=== PATIENT | female | born 1950 | race Caucasian/White ===

== ENCOUNTER 2017-03-10 22:11 | Emergency (ER) | payer OTHER, MEDICARE ==
[~2017-03-10] VITALS: Ht 162.6 cm; Wt 94.8 kg
[2017-03-10 23:59] LABS: HEMATOCRIT 43.3 % (36.0-46.0); MCH 27.9 PG (29.0-34.0); MCHC 31.9 G/DL (30.0-36.0); MCV 87.5 FL (83-99); MEAN PLAT.VOLUME 10.3 uM^3 (9.5-12.4); PLATELET COUNT 294 K/uL (156-360); RBC DIS.WIDTH-CV 13.7 % (11.8-14.6); RBC DIS.WIDTH-SD 43.6 % (39-53); RED BLOOD COUNT 4.95 M/uL (3.80-5.20)
[2017-03-11 00:16] LABS: CHLORIDE 107 mEq/L (99-109); POTASSIUM 3.9 mEq/L (3.7-5.4); SODIUM 140 mEq/L (136-147)
[2017-03-11 00:17] LABS: GLUCOSE 119 mg/dL (70-99)
[2017-03-11 00:19] LABS: ANION GAP 9 MEQ/L (2-14)
[2017-03-11 00:21] LABS: GFR ESTIMATE (CALCULATED) > 59 mL/min/
[2017-03-11 00:22] LABS: UREA NITROGEN (BUN) 17 mg/dL (9-23)
[2017-03-11 00:29] LABS: PROTHROMBIN TIME 10.4 (9.2-11.2); PTT 28.7 (25-32)
[2017-03-11 01:26] VITALS: BP 149/90
== END 2017-03-11 01:28 | disposition home or self-care (01) ==
LOC: RME 22:11 → EME 22:11 → RME 03-11 01:28
PROVIDERS: Physician Assistant
DX: R04.0 Epistaxis (principal); Z86.73 Personal history of transient ischemic attack (TIA), and cerebral infarction without residual deficits
CPT/HCPCS: 71020; 80048; 85027; 85610; 85730; 99281; 99283